=== PATIENT | female | born 1995 | race Native Hawaiian/Other Pacific Islander ===

== ENCOUNTER 2017-04-30 19:52 | Outpatient (CLI) | payer OTHER | END 2017-04-30 20:13 | disposition short-term general hospital (02) | LOC: AMB 19:52 | DX: R55 Syncope and collapse (principal); R11.2 Nausea with vomiting, unspecified; R51 Headache; Z33.1 Pregnant state, incidental | CPT/HCPCS: A0425; A0427 ==

== ENCOUNTER 2017-08-31 19:10 | Emergency (ER) | payer OTHER ==
[~2017-08-31] VITALS: Ht 162.6 cm; Wt 119.8 kg
== END 2017-08-31 20:00 | disposition home or self-care (01) ==
LOC: ED 19:10
DX: Z33.1 Pregnant state, incidental (principal); Z3A.32 32 weeks gestation of pregnancy
CPT/HCPCS: 99284

== ENCOUNTER 2018-01-24 04:35 | Emergency (ER) | payer OTHER ==
[~2018-01-24] VITALS: Ht 165.1 cm; Wt 108.9 kg
[2018-01-24 05:32] LABS: PLATELET COUNT 184 K/uL (152-353)
[2018-01-24 05:41] LABS: POTASSIUM 3.4 mmol/L (3.6-5.2)
[2018-01-24 06:10] VITALS: BP 123/78; TEMP 101.7
== END 2018-01-24 06:16 | disposition home or self-care (01) ==
LOC: ED 04:35
PROVIDERS: Family Medicine
DX: J02.0 Streptococcal pharyngitis (principal); R50.9 Fever, unspecified
CPT/HCPCS: 80053; 81000; 85027; 87880; 99283

== ENCOUNTER 2018-12-07 17:33 | Outpatient (CLI) | payer OTHER | END 2018-12-07 17:50 | disposition short-term general hospital (02) | LOC: AMB 17:33 | DX: R55 Syncope and collapse (principal); R53.1 Weakness; R19.7 Diarrhea, unspecified; R11.10 Vomiting, unspecified | CPT/HCPCS: A0425; A0427 ==

== ENCOUNTER 2018-12-07 17:46 | Emergency (ER) | payer OTHER ==
[~2018-12-07] VITALS: Ht 165.1 cm; Wt 124.7 kg
[2018-12-07 17:46] VITALS: TEMP 98.6
[2018-12-07 18:29] LABS: PLATELET COUNT 345 K/uL (152-353)
[2018-12-07 18:41] LABS: POTASSIUM 3.5 mmol/L (3.6-5.2)
[2018-12-07 20:45] VITALS: BP 117/75
== END 2018-12-07 20:45 | disposition home or self-care (01) ==
LOC: ED 17:46
PROVIDERS: Emergency Medicine
DX: K52.9 Noninfective gastroenteritis and colitis, unspecified (principal); R55 Syncope and collapse; R00.1 Bradycardia, unspecified
CPT/HCPCS: 80053; 81025; 85027; 93005; 96360; 96375; 99284; J2405